=== PATIENT | male | born 1985 | race Caucasian/White ===

== ENCOUNTER 2017-06-15 20:37 | Emergency (ER) | payer OTHER ==
[~2017-06-15] VITALS: Ht 165.1 cm; Wt 49.9 kg
[~2017-06-15 20:37] MED LIST: BACTRIM DS TAB1 EACH PO; BACTROBAN CREAM30 GM TOP; BACTROBAN NASAL1 GM NASAL; CHOLESTEROL; CLARITIN10 MG PO; CLEOCIN HCL150 MG PO; CLOTRIMAZOLE AF30 GM TP; COLACE100 MG PO; HIBICLENS120 ML TOP; IBUPROFEN 200200 M1 PO; LOPERAMIDE 2 MG2 M1 PO; MINOCIN100 MG PO; NORCO 5-325 TA1 EACH PO; PERCOCET 7.5-31 EACH PO; PROAIR HFA8.5 GM; PROAIR HFA8.5 GM INH
[2017-06-15] MEDS ORDERED: TRAMADOL 50 MG50 MG PO (21:01)
[2017-06-15 21:36] VITALS: BP 125/85
== END 2017-06-15 21:37 | disposition home or self-care (01) ==
LOC: M.ERS 20:37
DX: L02.211 Cutaneous abscess of abdominal wall (principal); J45.909 Unspecified asthma, uncomplicated; Z86.14 Personal history of Methicillin resistant Staphylococcus aureus infection

== ENCOUNTER 2018-08-16 21:58 | Emergency (ER) | payer OTHER ==
[~2018-08-16] VITALS: Ht 162.6 cm; Wt 95.3 kg
[~2018-08-16 21:58] MED LIST changes: +TRAMADOL 50 MG50 MG PO
[2018-08-16] MEDS ORDERED: PROAIR RESPICL90 MCG INH (22:08)
[2018-08-16] MEDS ORDERED: LIORESAL 10 MG10 MG PO (23:38)
[2018-08-16] MEDS ORDERED: CARISOPRODOL 3350 MG PO (23:38)
[2018-08-16 23:58] VITALS: BP 128/88
== END 2018-08-16 23:59 | disposition home or self-care (01) ==
LOC: M.ERS 21:58
DX: S39.012A Strain of muscle, fascia and tendon of lower back, initial encounter (principal); J45.909 Unspecified asthma, uncomplicated; V49.09XA Driver injured in collision with other motor vehicles in nontraffic accident, initial encounter; Y93.89 Activity, other specified; Y92.89 Other specified places as the place of occurrence of the external cause; Y99.8 Other external cause status

== ENCOUNTER 2019-02-19 15:21 | Emergency (ER) | payer OTHER ==
[~2019-02-19] VITALS: Ht 162.6 cm; Wt 93.4 kg
[~2019-02-19 15:21] MED LIST changes: +CARISOPRODOL 3350 MG PO; +LIORESAL 10 MG10 MG PO; +PROAIR RESPICL90 MCG INH
[2019-02-19] MEDS ORDERED: BACTRIM DS TAB1 EACH PO (15:44)
[2019-02-19] MEDS ORDERED: DIFLUCAN200 MG PO (15:44)
[2019-02-19] MEDS ORDERED: CLEOCIN HCL300 MG PO (15:45)
[2019-02-19] MEDS ORDERED: KEFLEX500 M1 PO (15:45)
[2019-02-19 15:52] VITALS: BP 132/91
== END 2019-02-19 15:55 | disposition home or self-care (01) ==
LOC: M.ERS 15:21
DX: L03.314 Cellulitis of groin (principal); J45.909 Unspecified asthma, uncomplicated; Z86.14 Personal history of Methicillin resistant Staphylococcus aureus infection; Z98.890 Other specified postprocedural states

== ENCOUNTER → 2019-11-20 | Outpatient (CLI) | payer OTHER ==
[~2019-11-20] MED LIST changes: +CLEOCIN HCL300 MG PO; +DIFLUCAN200 MG PO; +KEFLEX500 M1 PO
[2019-11-20 10:48] LABS: ABSOLUTE EOSINOPHILS 0.1 thou/uL (0.0-0.7); ABSOLUTE MONOCYTES 0.5 thou/uL (0.0-1.2); ABSOLUTE NEUTROPHILS 3.8 thou/uL (1.6-8.1); BASOPHILS 0.6 %; EOSINOPHILS 1.1 %; HEMATOCRIT 43.5 % (42.0-52.0); HEMOGLOBIN 15.1 gm/dL (14.0-18.0); LYMPHOCYTES 31.2 %; MCH 29.7 pg (26.0-34.0); MCHC 34.6 g/dL (28.0-37.0); MCV 85.8 fL (80.0-100.0); MONOCYTES 7.2 %; MPV 7.3 fl. (7.2-11.1); NUCLEATED RBCS 0 /100WBC; PLATELET COUNT* 332 thou/uL (150-400); POLYS 59.9 %; RBC 5.07 mil/uL (4.50-6.00); RDW-CV 14.4 % (10.5-14.5); WBC 6.4 thou/uL (4.0-11.0)
[2019-11-20 11:05] LABS: ALKALINE PHOSPHATASE 85 U/L (46-116); ANION GAP 10 mmol/L (7-16); BUN 15 mg/dL (7-18); CALCIUM 8.7 mg/dL (8.5-10.1); CHLORIDE 106 mmol/L (98-107); CHOLESTEROL 209 mg/dL (<200); CO2 24 mmol/L (21-32); CREATININE 1.2 mg/dL (0.6-1.3); GLUCOSE 102 mg/dL (70-99); HDL CHOLESTEROL 36 mg/dL (>40); LDL CHOLESTEROL 153 mg/dL (<100); POTASSIUM 3.9 mmol/L (3.5-5.1); SGOT 17 U/L (15-37); SGPT 27 U/L (30-65); SODIUM 140 mmol/L (136-145); TC:HDL 5.8 Ratio (Not establshd); TOTAL BILIRUBIN 0.4 mg/dL (<0.1-1.0); TOTAL PROTEIN 8.4 g/dL (6.4-8.2); TRIGLYCERIDE 100 mg/dL (<150); VLDL 20 mg/dL (<40)
[2019-11-20 11:06] LABS: SERUM ASSESSMENT Clear
[2019-11-21 02:07] LABS: GLYCOHEMOGLOBIN (HGB A1C) 5.3 % (4.8-5.6)
== END ==
LOC: M.LAB 09:55
PROVIDERS: ATTEND Family Medicine
DX: U07.1 COVID-19 (principal); Z00.00 Encounter for general adult medical examination without abnormal findings; E78.00 Pure hypercholesterolemia, unspecified; J45.40 Moderate persistent asthma, uncomplicated